=== PATIENT | female | born 1975 | race Caucasian/White ===

== ENCOUNTER 2018-03-07 10:11 | Emergency (ER) | payer SELFPAY ==
[2018-03-07] MEDS ORDERED: ONDANSETRON 4 MG/2 ML VIAL ONE (10:53)
[2018-03-07] MEDS ORDERED: NA CHLORIDE 0.9% 1,000 ML ONE (10:53)
[2018-03-07] MEDS ORDERED: MORPHINE 4 MG/ML SYR ONE (10:53)
--- NOTE | 2018-03-07 10:58 | RAD REPORT ---
EXAM DESCRIPTION: CT - Stone Protocol - 03/07/2018 10:42 am CLINICAL HISTORY: Flank pain. FLANK PAIN COMPARISON: No comparisons TECHNIQUE: Axial images were obtained without oral or IV contrast. Lack of contrast limits solid org an and vascular assessment. The [id number] spans the entirety of the system partially obscuring uppermost abdomen and lung bases. Coronal reformatted images were obtained and reviewed. All CT scans are performed using dose optimization technique as appropriate and may include automated exposure control or mA/KV adjustment according to patient size. FINDINGS: The lower lung ayoub are clear. Imaged portions of the liver and spleen show no suspicious findings on non-contrast imaging.Cholecyst ectomy clips. The pancreas and adrenal glands are normal. Moderate mesenteric edema is present with m ultiple lymph nodes in the small bowel mesentery. No urinary tract stones or obstructive uropathy. No bowel obstruction, free air, free fluid or abscess. Normal appendix noted. Moderate degenerative L5-S1 disc space findings. IMPRESSION: No urinary tract stones or obstructive uropathy. Moderate mesenteric inflammation with several lymph nodes noted in the region could indicate adenitis .
[2018-03-07 11:10] LABS: Urine Blood TRACE (NEG); Urine Glucose NEGATIVE (NEG); Urine Protein 2+ (NEG); Urine Specific Gravity >1.030 (1.005-1.030)
[2018-03-07 11:11] LABS: Urine Bacteria >50 /HPF (<20); Urine RBC <5 /HPF (NONE SEEN)
[2018-03-07 11:12] LABS: Absolute Lymphocytes (CBC) 0.9 K/uL (0.7-4.9); Absolute Monocytes 0.9 K/uL (0.1-1.3); Absolute Neutrophil 7.3 K/uL (1.8-8.0); Basophils % 0.4 % (0-1.3); Eosinophils % 0.3 % (0-4.4); Hematocrit 44.8 % (36.0-45.0); Lymphocytes % 10.4 % (15.3-44.8); MCH 29.7 pg (27.0-35.0); MCV 85.4 fL (80-100); MPV 7.9 fL (7.6-11.3); Monocytes % 9.6 % (3.3-12.3); RBC Red Blood Cell Count 5.25 M/uL (3.86-4.86)
[2018-03-07 11:12] LABS: Urine Culture Reflex Order REFLEXED; Urine Mucus 2+ /HPF (NONE SEEN)
[2018-03-07 11:42] LABS: Albumin 3.7 g/dL (3.4-5.0); Bilirubin Direct 0.2 mg/dL (0-0.2); Bilirubin Total 0.6 mg/dL (0.2-1.0)
[2018-03-07] MEDS ORDERED: POTASSIUM CL SA 10 MEQ TAB PO ONE (11:58)
--- NOTE | 2018-03-07 12:05 | EDPHYS ---
Physician Documentation [facility] Name: Anh Garcia Age: 42 yrs Sex: Female : 1975 Arrival Date: 03/07/2018 Time: 10:15 Bed 20 Private MD: ED Physician Waldemar Medrano HPI: 03/07 10:33 This 42 yrs old Female presents to ER via Ambulatory with complaints of pm1 Abdominal Pain, Back Pain. 10:34 The patient presents with pain that is acute, with no known mechanism of injury. The pm1 symptoms are located in the low back. Onset: The symptoms/episode began/occurred 2 day(s) ago. 10:34 The pain does not radiate. Associated signs and symptoms: Pertinent positives: pm1 abdominal pain, nausea, vomiting, Diarrhea, Pertinent negatives: chest pain, dysuria, hematuria, numbness, tingling, urinary retention. The problem was sustained from unknown cause. Modifying factors: The patient symptoms are alleviated by nothing, the patient symptoms are aggravated by nothing. The patient has not experienced similar symptoms in the past. The patient has not recently seen a physician. 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 - Social history:: Smoking status: Patient uses tobacco products, smokes one pack cigarettes per day. Patient/guardian denies using alcohol. - Ebola Screening: : Patient negative for fever greater than or equal to 101.5 degrees Fahrenheit, and additional compatible Ebola Virus Disease symptoms Patient denies exposure to infectious person Patient denies travel to an Ebola-affected area in the 21 days before illness onset. ROS: 10:34 Eyes: Negative for injury, pain, redness, and discharge, ENT: Negative for injury, pm1 pain, and discharge, Neck: Negative for injury, pain, and swelling, Cardiovascular: Negative for chest pain, palpitations, and edema, Respiratory: Negative for shortness of breath, cough, wheezing, and pleuritic chest pain. 10:34 : Negative for injury, bleeding, discharge, and swelling, MS/Extremity: Negative for injury and deformity, Skin: Negative for injury, rash, and discoloration, Neuro: Negative for headache, weakness, numbness, tingling, and seizure. 10:34 Constitutional: Positive for body aches, poor PO intake. 10:34 Abdomen/GI: Positive for abdominal pain, nausea, vomiting, and diarrhea. 10:34 Back: Positive for of the low back area, Pain. Exam: 10:34 Constitutional: This is a well developed, well nourished patient who is awake, alert, pm1 and in no acute distress. Head/Face: Normocephalic, atraumatic. Eyes: Pupils equal round and reactive to light, extra-ocular motions intact. Lids and lashes normal. Conjunctiva and sclera are non-icteric and not injected. Cornea within normal limits. Periorbital areas with no swelling, redness, or edema. ENT: Nares patent. No nasal discharge, no septal abnormalities noted. Tympanic membranes are normal and external auditory canals are clear. Oropharynx with no redness, swelling, or masses, exudates, or evidence of obstruction, uvula midline. Mucous membranes moist. Neck: Trachea midline, no thyromegaly or masses palpated, and no cervical lymphadenopathy. Supple, full range of motion without nuchal rigidity, or vertebral point tenderness. No Meningismus. Chest/axilla: Normal chest wall appearance and motion. Nontender with no deformity. No lesions are appreciated. Cardiovascular: Regular rate and rhythm with a normal S1 and S2. No gallops, murmurs, or rubs. Normal PMI, no JVD. No pulse deficits. Respiratory: Lungs have equal breath sounds bilaterally, clear to auscultation and percussion. No rales, rhonchi or wheezes noted. No increased work of breathing, no retractions or nasal flaring. 10:34 Skin: Warm, dry with normal turgor. Normal color with no rashes, no lesions, and no evidence of cellulitis. MS/ Extremity: Pulses equal, no cyanosis. Neurovascular intact. Full, normal range of motion. 10:34 Abdomen/GI: Inspection: abdomen appears normal, Bowel sounds: normal, Palpation: abdomen is soft and non-tender, mass, is not appreciated, rebound tenderness, is not appreciated. 10:34 Back: pain, that is mild, of the left low back and right low back, normal spinal alignment noted, vertebral tenderness, is not appreciated. 10:34 Neuro: Orientation: is normal, Motor: moves all fours, strength is 5/5 in all extremities, Sensation: is normal, no obvious gross deficits, Gait: is steady, at a normal pace, without difficulty. Vital Signs: 10:19 BP 136 / 86; Pulse 120; Resp 18; Temp 98.5(O); Pulse Ox 100% on R/A; Weight 97.52 kg; hj Height 5 ft. 5 in. (165.10 cm); Pain 8/10; 11:51 BP 106 / 64; Pulse 96; Resp 18; Pulse Ox 96% on R/A; mb3 12:31 BP 104 / 63; Pulse 89; Resp 18; Pulse Ox 95% on R/A; mb3 10:19 Body Mass Index 35.78 (97.52 kg, 165.10 cm) hj MDM: 10:23 Patient medically screened. pm1 10:38 Data reviewed: vital signs. Data interpreted: Pulse oximetry: on room air is 100 %. pm1 Interpretation: normal. 11:49 Counseling: I had a detailed discussion with the patient and/or guardian regarding: the pm1 historical points, exam findings, and any diagnostic results supporting the discharge/admit diagnosis, lab results, radiology results, the need for outpatient follow up, to return to the emergency department if symptoms worsen or persist or if there are any questions or concerns that arise at home. 03/07 10:31 Order name: Basic Metabolic Panel; Complete Time: 11:48 pm1 03/07 10:31 Order name: CBC with Diff; Complete Time: 11:27 pm1 03/07 10:31 Order name: Hepatic Function; Complete Time: 11:48 pm1 03/07 10:31 Order name: Lipase; Complete Time: 11:48 pm1 03/07 10:31 Order name: Urine Microscopic Only; Complete Time: 11:27 pm1 03/07 10:34 Order name: Flu pm1 03/07 10:31 Order name: CT Stone Protocol; Complete Time: 11:00 pm1 03/07 10:34 Order name: Influenza Screen (A ; Complete Time: 11:27 EDMS 03/07 11:06 Order name: Urine Dipstick--Ancillary (enter results); Complete Time: 11:27 ag 03/07 11:06 Order name: Urine --Ancillary (enter results); Complete Time: 11:27 ag 03/07 11:12 Order name: Urine Culture [facility] 03/07 10:31 Order name: Urine Test (obtain specimen); Complete Time: 11:05 pm1 03/07 10:31 Order name: IV Saline Lock; Complete Time: 11:05 pm1 03/07 10:31 Order name: Labs collected and sent; Complete Time: 11:05 pm1 03/07 10:31 Order name: Urine Dipstick-Ancillary (obtain specimen); Complete Time: 11:04 pm1 Administered Medications: 11:05 Drug: NS 0.9% 1000 ml Route: IV; Rate: 1000 ml; Site: right antecubital; mb3 11:59 Follow up: Response: No adverse reaction; IV Status: Completed infusion; IV Intake: mb3 1000ml 11:58 Not Given (Patient Refused): morphine 4 mg IVP once mb3 11:58 Drug: Potassium Chloride 40 mEq Route: PO; mb3 12:30 Follow up: Response: No adverse reaction mb3 11:59 Not Given (Patient Refused): Zofran 4 mg IVP once; over 2 minutes mb3 Disposition: 17:34 Co-signature as Attending Physician, Waldmear Medrano MD. rn Disposition: 03/07/18 12:04 Discharged to Home. Impression: Diarrhea, unspecified, Vomiting, Urinary tract infection, site not specified. - Condition is Stable. - Discharge Instructions: Food Choices to Help Relieve Diarrhea, Adult, Diarrhea, Nausea and Vomiting, Urinary Tract Infection, Viral Gastroenteritis. - Prescriptions for Bentyl 20 mg Oral Tablet - take 1 tablet by ORAL route every 6 hours As needed; 20 tablet. Zofran 4 mg Oral Tablet - take 1 tablet by ORAL route every 12 hours As needed; 20 tablet. Macrobid 100 mg Oral Capsule - take 1 capsule by ORAL route every 12 hours for 10 days; 20 capsule. - Medication Reconciliation Form, Thank You Letter, Antibiotic Education form. - Follow up: Emergency Department; When: As needed; Reason: Worsening of condition. Follow up: Private Physician; When: 2 - 3 days; Reason: Recheck today's complaints, Continuance of care, Re-evaluation by your physician. - Problem is new. - Symptoms have improved. Signatures: Dispatcher [employer] EDWaldemar Payne MD MD rn Joaquin, Henry, RN RN hj Marinas, Patrick, NP LEAD SLOT TECHNICIAN pm1 Bronson Jones, SHIVA RN mb3 Corrections: (The following items were deleted from the chart) 12:31 12:04 03/07/2018 12:04 Discharged to Home. Impression: Diarrhea, unspecified; Vomiting; mb3 Urinary tract infection, site not specified. Condition is Stable. Forms are Medication Reconciliation Form, Thank You Letter, Antibiotic Education, Prescription Opioid Use. Follow up: Emergency Department; When: As needed; Reason: Worsening of condition. Follow up: Private Physician; When: 2 - 3 days; Reason: Recheck today's complaints, Continuance of care, Re-evaluation by your physician. Problem is new. Symptoms have improved. pm1
--- NOTE | 2018-03-07 12:05 | ER ---
Nurse's Notes [facility] Name: Anh Garcia Age: 42 yrs Sex: Female : 1975 Arrival Date: 03/07/2018 Time: 10:15 Bed 20 Private MD: Diagnosis: Diarrhea, unspecified;Vomiting;Urinary tract infection, site not specified Presentation: 03/07 10:15 Presenting complaint: Patient states: i felt at first i have flu symptoms, this was hj Monday, body aches, headache and fever, and Monday, stomach pain started and back pain; nausea and vomiting; reports diarrhea yesterday; denies taking OTC meds;. Transition of care: patient was not received from another setting of care. Onset of symptoms was March 07, 2018. Risk Assessment: Do you want to hurt yourself or someone else? Patient reports no desire to harm self or others. Initial Sepsis Screen: Does the patient meet any 2 criteria? No. Patient's initial sepsis screen is negative. Does the patient have a suspected source of infection? No. Patient's initial sepsis screen is negative. Care prior to arrival: None. 10:15 Method Of Arrival: Ambulatory 10:15 Acuity: [place] 3 hj Triage Assessment: 10:18 General: Appears in no apparent distress. uncomfortable, Behavior is calm, cooperative, hj appropriate for age. Pain: Complains of pain in abdomen Pain currently is 10 out of 10 on a pain scale. GI: Abdomen is non-distended, Bowel sounds present X 4 quads. Reports upper abdominal pain, nausea, vomiting. 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 - Social history:: Smoking status: Patient uses tobacco products, smokes one pack cigarettes per day. Patient/guardian denies using alcohol. - Ebola Screening: : Patient negative for fever greater than or equal to 101.5 degrees Fahrenheit, and additional compatible Ebola Virus Disease symptoms Patient denies exposure to infectious person Patient denies travel to an Ebola-affected area in the 21 days before illness onset. Screenin:19 Abuse screen: Denies threats or abuse. Denies injuries from another. Nutritional hj screening: No deficits noted. Tuberculosis screening: No symptoms or risk factors identified. Fall Risk None identified. Assessment: 10:21 GI: Abd is soft and non tender. hj 12:00 Reassessment: Patient and/or family updated on plan of care and expected duration. Pain mb3 level reassessed. Patient is alert, oriented x 3, equal unlabored respirations, skin warm/dry/pink. Patient states feeling better. Patient states symptoms have improved. Vital Signs: 10:19 BP 136 / 86; Pulse 120; Resp 18; Temp 98.5(O); Pulse Ox 100% on R/A; Weight 97.52 kg; hj Height 5 ft. 5 in. (165.10 cm); Pain 8/10; 11:51 BP 106 / 64; Pulse 96; Resp 18; Pulse Ox 96% on R/A; mb3 12:31 BP 104 / 63; Pulse 89; Resp 18; Pulse Ox 95% on R/A; mb3 10:19 Body Mass Index 35.78 (97.52 kg, 165.10 cm) ED Course: 10:15 Patient arrived in ED. hj 10:17 Triage completed. hj 10:19 Arm band placed on right wrist. hj 10:21 Patient has correct armband on for positive identification. Placed in gown. Bed in low hj position. Call light in reach. Side rails up X 1. 10:23 Paolo Garnica NP is PHCP. pm1 10:23 Waldemar Medrano MD is Attending Physician. pm1 10:38 Bronson Jones, SHIVA is Primary Nurse. mb3 10:[address] via wheelchair. sw 10:41 CT completed. Patient tolerated procedure well. Patient moved back from CT. sw 10:42 CT Stone Protocol In Process Unspecified. EDMS 11:03 Initial lab(s) drawn, by me, sent to lab. Flu and/or RSV swab sent to lab. Inserted [facility] saline lock: 20 gauge in right antecubital area, using aseptic technique. Blood collected. 11:04 Urine collected: clean catch specimen, clear. [facility] 11:04 Influenza Screen (A Sent. 5 11:04 Flu Sent. 5 11:04 Basic Metabolic Panel Sent. 5 11:04 CBC with Diff Sent. 5 11:04 Hepatic Function Sent. 5 11:05 Lipase Sent. 5 11:05 Urine Microscopic Only Sent. 5 12:30 No provider procedures requiring assistance completed. IV discontinued, intact, mb3 bleeding controlled, No redness/swelling at site. Pressure dressing applied. Administered Medications: 11:05 Drug: NS 0.9% 1000 ml Route: IV; Rate: 1000 ml; Site: right antecubital; mb3 11:59 Follow up: Response: No adverse reaction; IV Status: Completed infusion; IV Intake: mb3 1000ml 11:58 Not Given (Patient Refused): morphine 4 mg IVP once mb3 11:58 Drug: Potassium Chloride 40 mEq Route: PO; mb3 12:30 Follow up: Response: No adverse reaction mb3 11:59 Not Given (Patient Refused): Zofran 4 mg IVP once; over 2 minutes mb3 Intake: 11:59 IV: 1000ml; Total: 1000ml. mb3 Outcome: 12:04 Discharge ordered by . pm1 12:30 Discharged to home ambulatory. mb3 12:30 Condition: stable 12:30 Discharge instructions given to patient, Instructed on discharge instructions, follow up and referral plans. medication usage, Demonstrated understanding of instructions, follow-up care, medications, Prescriptions given X 3. 12:31 Patient left the ED. mb3 Signatures: Dispatcher [employer] EDGifty Ponce Henry, RN RN Paolo Garnica NP COMPUTER ASSEMBLER 1 Monika aHrdy [facility] Bronson Jones, RN RN mb3 Corrections: (The following items were deleted from the chart) 10:21 10:19 Pulse 120bpm; Resp 18bpm; Pulse Ox 100% RA; Temp 98.5F Oral; 97.52 kg; Height 5 hj ft. 5 in.; BMI: 35.7; Pain 8/10; hj
== END 2018-03-07 12:31 | disposition home or self-care (01) ==
LOC: ER 10:11
DX: N39.0 Urinary tract infection, site not specified (principal); R19.7 Diarrhea, unspecified; F41.9 Anxiety disorder, unspecified; F17.210 Nicotine dependence, cigarettes, uncomplicated; Z91.040 Latex allergy status; Z91.048 Other nonmedicinal substance allergy status
CPT/HCPCS: 36415; 74176; 76377; 80048; 80076; 81003; 81015; 81025; 83690; 85025; 87086; 87088; 87804; 96360; 99284; J2405; J7030